=== PATIENT | female | born 2000 | race Caucasian/White ===

== ENCOUNTER 2022-06-05 08:50 | Emergency (ER) | payer BC ==
[~2022-06-05] VITALS: Ht 160 cm; Wt 66.7 kg
--- NOTE | 2022-06-05 08:55 | NUR ---
Placed in room 07 . Placed on monitor technician, blood pressure machine and pulse oximeter. To gown for exam. Side rails up. Report given to MELISSA DIAZ.
[2022-06-05 08:56] VITALS: BP_SYST 119
--- NOTE | 2022-06-05 09:01 | NUR ---
ER Dr. WILL at bedside examining patient.
--- NOTE | 2022-06-05 09:03 | NUR ---
PATIENT CAME FROM HOME C/O ABDOMINAL PAIN AND CRAMPING WITH SPOTTING THAT STARTED THIS AM. PT STATES THIS IS SECOND , NO LIVING CHILDREN. HAS HX OF ASTHMA. PATIENT IS A&OX4, CALM AND COOPERATIVE WITH STABLE VITAL SIGNS. CARE WILL BE GIVEN ORDERED BY PROVIDER.
[2022-06-05 09:35] LABS: BASOPHILS % (AUTO) 0.4 % (0.0-2.0); EOSINOPHILS # (AUTO) 0.1 K/uL (0.0-0.4); EOSINOPHILS % (AUTO) 2.8 % (0.0-4.0); HEMATOCRIT 40.9 % (36-48); HEMOGLOBIN 14.3 g/dL (12.0-16.0); LYMPHOCYTES # (AUTO) 1.5 K/uL (1.0-5.5); LYMPHOCYTES % (AUTO) 32.4 % (20.5-51.5); MEAN CORPUSCULAR HEMOGLOBIN 31 pg (27-31); MEAN CORPUSCULAR HGB CONC 35 % (32-36); MEAN CORPUSCULAR VOLUME 88 fL (79.0-98.0); MONOCYTES # (AUTO) 0.3 K/uL (0.0-1.0); MONOCYTES % (AUTO) 6.4 % (1.7-9.3); NEUTROPHILS # (AUTO) 2.7 K/uL (1.8-7.7); PLATELET COUNT (AUTO) 139 K/uL (130-430); RED BLOOD CELL COUNT(AUTO) 4.66 MIL/uL (4.2-6.2); RED CELL DISTRIBUTION WIDTH 13.1 % (9.0-15.0); WHITE BLOOD COUNT (AUTO) 4.7 K/uL (4.5-11.0)
--- NOTE | 2022-06-05 10:47 | NUR ---
Patient given written and verbal discharge instructions and verbalizes understanding. ER MD discussed with patient the results and treatment provided. Patient in stable condition. ID arm band removed. Patient educated on pain management and to follow up with PMD. Pain Scale 0/10. Opportunity for questions provided and answered. Medication side effect fact sheet provided.
== END 2022-06-05 10:47 | disposition home or self-care (01) ==
LOC: SED 08:50
DX: O03.4 Incomplete spontaneous abortion without complication (principal); Z3A.08 8 weeks gestation of pregnancy; Z88.0 Allergy status to penicillin; Z79.899 Other long term (current) drug therapy
CPT/HCPCS: 36415; 84702; 85025; 86901; 99284

== ENCOUNTER 2022-06-07 08:07 | Emergency (ER) | payer BC ==
[~2022-06-07] VITALS: Ht 160 cm; Wt 66.7 kg
[2022-06-07 08:11] VITALS: BP_SYST 114
[2022-06-07 09:17] LABS: BILIRUBIN,URINE NEGATIVE (NEGATIVE); BLOOD, URINE 1+ (NEGATIVE); CLARITY/URINE TURBID (CLEAR); COLOR,URINE YELLOW (YELLOW); GLUCOSE,URINE NEGATIVE (NEGATIVE); KETONES,URINE NEGATIVE (NEGATIVE); LEUKOCYTE ESTERASE ,URINE 2+ (NEGATIVE); NITRITE, URINE NEGATIVE (NEGATIVE); PH,URINE 5.5 (5.0-8.0); PROTEIN URINE 1+ (NEGATIVE); UROBILINOGEN,URINE 0.2 (0.2-1.0)
[2022-06-07 09:49] LABS: BACTERIA,URINE MANY /HPF (None Seen); WBC,URINE 50-80 /HPF (0-3)
[2022-06-07] MEDS ORDERED: NITR-85 PO (11:58)
[2022-06-07 12:05] VITALS: BP_SYST 114
== END 2022-06-07 12:05 | disposition home or self-care (01) ==
LOC: SED 08:07
DX: O03.4 Incomplete spontaneous abortion without complication (principal); Z3A.09 9 weeks gestation of pregnancy; Z88.0 Allergy status to penicillin; Z79.899 Other long term (current) drug therapy
CPT/HCPCS: 36415; 76801; 76817; 81000; 81025; 84702; 87086; 99284

== ENCOUNTER 2022-09-27 13:58 | Emergency (ER) | payer BC ==
[~2022-09-27] VITALS: Ht 160 cm; Wt 66.2 kg
[2022-09-27 13:58] VITALS: BP_SYST 139
[~2022-09-27 13:58] MED LIST: NITR-85 PO
--- NOTE | 2022-09-27 14:00 | NUR ---
TAKEN IMMEDIATELY BACK TO BED #5 AND TRIAGED. REPORT GIVEN TO STEPHANY
--- NOTE | 2022-09-27 14:05 | NUR ---
BIB FRIEND FROM HOME WITH C/O SEVERE LACERATION TO THE RIGHT HAND AND FINGERS. PT STATES SHE WAS CLEANING THE BATHROOM WHEN SHE SLIPPED AND CAUGHT HERSELF ON A SELF STANDING MIRROR WHICH SHATTERED THE MIRROR. THE PT BLEED PROFUSELY ALL OVER THE BATHROOM AND WAS DRIVEN TO THE ER BY HER FRINED. HX - NO MEDICAL HX. PT IS AAXO4, VVS BREATHING EVEN AND UNLABORED ON RA, PT IN GOWN, ON LIVE IN CAREGIVER SHOWING NSR. SAFETY PRECAUTIONS AND COMFORT MEASURES IN PLACE. PENDING MD MARTI AND ORDERS.
--- NOTE | 2022-09-27 14:07 | NUR ---
DR. GARCIA AT BESIDE EXAMINING THE PT.
[2022-09-27] MEDS ORDERED: LIDOCAINE 1%, 20 ML MDV 20 ML ONE (14:18)
[2022-09-27] MEDS ORDERED: BACITRACIN 1 GM OINT TP ONE (15:05)
[2022-09-27] MEDS ORDERED: IBUPROFEN 800 MG TABLET PO ONE (15:15)
[2022-09-27 15:20] VITALS: BP_SYST 118
--- NOTE | 2022-09-27 15:30 | NUR ---
PT MEDICALLY CLEARED FOR D/C. D/C INSTRUCTIONS GIVEN TO PT. PT TO FOLLOW-UP WITH PCP WITHIN 1-3 DAYS AND TO RETURN TO ED FOR WORSENING S/S. PT VERBALIZED UNDERSTANDING. PT IS AAX04. NAD, WRISTBAND REMOVED. PT AMBULATORY WITH STEADY GAIT. PT LEFT ED WITH ALL BELONGINGS.
[2022-09-27] MEDS ORDERED: IBUP-1969 PO (15:46)
[2022-09-27] MEDS ORDERED: CLIN-142 PO (15:46)
== END 2022-09-27 15:30 | disposition home or self-care (01) ==
LOC: SED 13:58
DX: S61.411A Laceration without foreign body of right hand, initial encounter (principal); Z88.0 Allergy status to penicillin; Z79.899 Other long term (current) drug therapy; W25.XXXA Contact with sharp glass, initial encounter; Y93.89 Activity, other specified; Y92.89 Other specified places as the place of occurrence of the external cause; Y99.8 Other external cause status
CPT/HCPCS: 99282; 12002; J2001